=== PATIENT | female | born 1985 | race African-American/Black ===

== ENCOUNTER 2018-06-13 08:26 | Day surgery (SDC) | payer BC, OTHER ==
[2018-06-09 11:08] VITALS: BMI 27.1
[~2018-06-13 08:26] MED LIST: LACTATED RINGERS 1,000 ML IV SCH
[2018-06-13 08:53] VITALS: TEMP 98.8
[2018-06-13] MEDS ORDERED: LIDOCAINE 1% INJ 10MG/ML (20 ML MDV) ONE (09:41)
[2018-06-13] MEDS ORDERED: fentaNYL (PF) 50 MCG/ML 2 ML AMP ONE (09:41)
[2018-06-13] MEDS ORDERED: PROPOFOL 10 MG/ML 20 ML VIAL IV ONE (09:41)
--- NOTE | 2018-06-13 09:47 | P.GSHP ---
History of Present Illness H&P Date: 06/13/18 Chief Complaint: GERD This is a 32-year-old female who presents today for EGD. Patient issues with GERD. Past Medical History Past Medical History: No Reported History Additional Past Medical History / Comment(s): stomach discomfort and burning History of Any Multi-Drug Resistant Organisms: None Reported Past Surgical History: Hernia Repair Additional Past Surgical History / Comment(s): 2 front tooth extracted 06/07/18 Past Anesthesia/Blood Transfusion Reactions: No Reported Reaction Smoking Status: Current every day smoker - Past Family History Mother Family Medical History: Unable to Obtain Additional Family Medical History / Comment(s): pt adopted family hhx unknown Medications and Allergies Home Medications Medication Instructions Recorded Confirmed Type Ibuprofen [Motrin] 800 mg PO TID 11/25/15 06/13/18 History Acetaminophen-Codeine 300-30mg 1 tab PO Q4H PRN 06/09/18 06/13/18 History [Tylenol w/codeine #3] Sucralfate [Carafate] 1 gm PO TID 06/09/18 06/13/18 History busPIRone HCL 10 mg PO Q8H 06/09/18 06/13/18 History Allergies Allergy/AdvReac Type Severity Reaction Status Date / Time No Known Allergies Allergy Verified 06/13/18 09:03 Surgical - Exam Vital Signs Temp Pulse Resp BP Pulse Ox 98.8 F 70 16 132/80 99 06/13/18 08:51 06/13/18 08:51 06/13/18 08:51 06/13/18 08:51 06/13/18 08:51 - General well developed, no distress - Eyes PERRL - ENT normal pinna - Neck no masses, no bruits - Respiratory normal expansion - Cardiovascular Rhythm: regular - Abdomen Abdomen: soft, non tender Assessment and Plan Assessment: GERD. We'll perform EGD.
--- NOTE | 2018-06-13 09:58 | P.OP ---
Date of Procedure: 06/13/18 Preoperative Diagnosis: GERD Postoperative Diagnosis: Mild duodenitis Moderate antral gastritis No evidence of hiatal hernia No evidence of esophagitis Procedure(s) Performed: EGD Anesthesia: MAC Surgeon: Guilherme Reid Pathology: other (Antrum, esophagus) Condition: stable Disposition: PACU Description of Procedure: The patient's placed on the endoscopy table in the lateral position. She received IV sedation. The gastroscope placed oropharynx and passed in the esophagus into the stomach. Scope was then placed through the pylorus. The first second portion of duodenum appeared mildly inflamed. A biopsies performed. Scope was then brought back and the antrum. This was moderately inflamed. There is evidence of some gastritis. This area is biopsied. Scope was then retroflexed the remainder of the stomach appeared normal. The GE junction was at 40 cm. There is no significant hiatal hernia.. The distal esophagus appeared normal. The proximal esophagus appeared normal. Was withdrawn for patient.
[2018-06-13 10:24] VITALS: BP 122/82; PULSE 56; RESP 18
== END 2018-06-13 10:38 | disposition home or self-care (01) ==
LOC: ORWHC2ENDO 08:26
PROVIDERS: ATTEND Surgery
DX: K29.50 Unspecified chronic gastritis without bleeding (principal); K29.80 Duodenitis without bleeding; F17.200 Nicotine dependence, unspecified, uncomplicated; Z79.1 Long term (current) use of non-steroidal anti-inflammatories (NSAID); Z79.899 Other long term (current) drug therapy
CPT/HCPCS: 43239; 81025; 88305

== ENCOUNTER 2019-08-22 04:44 | Outpatient (CLI) | payer OTHER ==
[2019-08-22 05:13] VITALS: BP 131/82; PULSE 88; RESP 18; TEMP 97.9
--- NOTE | 2019-09-19 07:24 | P.MSEPDOC ---
Presenting Problems - Arrival Data Date of Arrival on Unit: 08/22/19 Time of Arrival on Unit: 04:44 Mode of Transport: Ambulatory - Complaint OB-Reason for Admission/Chief Complaint: Syncope/Fainting Spell Comment: Near syncopal episode at work, did not fall, just felt like she was going to pass out and caught by coworkers, taken to [facility] Medical History - Information : 1 Para: 0 Term: 0 : 0 Abortions: Spontaneous or Elective: 0 Number of Living Children: 0 - Gestational Age Gestational Age by LOREN (wks/days): 31 Weeks and 3 Days - History Complications: Smoker Review of Systems - Review of Systems Constitutional: No problems Breast: No problems ENT: No problems Cardiovascular: No problems Respiratory: No problems Gastrointestinal: No problems Genitourinary: No problems Musculoskeletal: No problems Neurological: No problems Skin: No problems Vital Signs - Temperature Temperature: 97.9 F Temperature Source: Temporal Artery Scan - Pulse Right Supine Brachial Pulse Rate: 88 Pulse Assessment Method: Automatic Cuff - Respirations Respiratory Rate: 18 Oxygen Delivery Method: Room Air O2 Sat by Pulse Oximetry: 99 - Blood Pressure Right Arm Supine Blood Pressure: 131/82 Blood Pressure Mean: 98 Blood Pressure Source: Automatic Cuff Medical Screen Scoring (Pre) - Cervical Exam Dilation: Exam Deferred Effacement: Exam Deferred Membranes: Intact - Uterine Contractions Frequency: N/A Duration: N/A Intensity: N/A - Maternal Vital Signs Maternal Temperature: N/A Maternal Blood Pressure: N/A Signs of Preeclampsia: N/A - Maternal Trauma Maternal Trauma: N/A - Assessment - Baby A Baseline FHR: 135 Heart Rate - NICHD Category: Category I (Normal) = 0 NST: Reactive - Total Score - Baby A Total Score - Baby A: 0 - Total Score - Baby B Total Score - Baby B: 0 - Total Score - Baby C Total Score - Baby C: 0 - Level of Risk - Baby A Level of Risk - Baby A: Low (0-5) - Level of Risk - Baby B Level of Risk - Baby B: Low (0-5) - Level of Risk - Baby C Level of Risk - Baby C: Low (0-5) Physician Notification (Pre) - Physician Notified Physician Notified Date: 08/22/19 Physician Notified Time: 04:50 New Order Received: Yes - Notification Comment Comment: obtain Reactive NST and assess pt to see if she feels better, if reactive NST and feeling better she may be discharged to home Disposition - Disposition OB Disposition: Triage, Discharge to home Discharge Date: 08/22/19 Discharge Time: 05:30 I agree with the RN Medical Screening Exam: Yes Risk & Benefit of care provided described in d/c instruction: Yes Diagnosis: SYNCOPE AND COLLAPSE
== END 2019-08-22 05:30 | disposition home or self-care (01) ==
LOC: FBPOP 04:44
PROVIDERS: ATTEND Obstetrics & Gynecology
DX: O99.89 Other specified diseases and conditions complicating pregnancy, childbirth and the puerperium (principal); R55 Syncope and collapse; Z3A.31 31 weeks gestation of pregnancy
CPT/HCPCS: 59025; G0463; 99213

== ENCOUNTER 2019-10-12 14:16 | Inpatient (IN) | payer OTHER ==
[2019-10-12 14:53] LABS: Appearance,Urine Cloudy (Clear); Bacteria,Urine Rare /hpf; Bilirubin,Urine Negative (Negative); Blood,Urine Negative (Negative); Color,Urine Yellow; Glucose,Urine (UA) Negative (Negative); Ketones,Urine Negative (Negative); Leukocyte Esterase,Urine Trace (Negative); Mucus,Urine Rare /hpf; Nitrite,Urine Negative (Negative); Protein,Urine Negative (Negative); RBC,Urine 1 /hpf (0-5); Specific Gravity,Urine 1.015 (1.001-1.035); Squamous Epithelial Cell,Urine 5 /hpf (0-4); Urobilinogen,Urine <2.0 mg/dL (<2.0); WBC,Urine 1 /hpf (0-5)
[2019-10-12 14:57] LABS: Protein/Creatinine Ratio,Urine 0.095
[2019-10-12 15:43] LABS: ALT 10 U/L (4-34); AST 19 U/L (14-36); African American GFR (CKD) >90 (>60 ml/min/1.73 sqM); Basophils % (A) 0 %; Blood Urea Nitrogen 9 mg/dL (7-17); Eosinophils # (A) 0.1 k/uL (0-0.7); Eosinophils % (A) 1 %; HCT 36.5 % (34.0-46.0); HGB 11.4 gm/dL (11.4-16.0); LDH 368 U/L (313-618); Lymphocytes # (A) 1.6 k/uL (1.0-4.8); Lymphocytes % (A) 18 %; MCH 26.4 pg (25.0-35.0); MCHC 31.1 g/dL (31.0-37.0); MCV 84.9 fL (80.0-100.0); Mean Platelet Volume 9.5; Monocytes # (A) 0.5 k/uL (0-1.0); Monocytes % (A) 6 %; Neutrophils # (A) 6.4 k/uL (1.3-7.7); Neutrophils % (A) 73 %; Non-African American GFR(CKD) >90 (>60 ml/min/1.73 sqM); Platelet Count 248 k/uL (150-450); RDW 15.3 % (11.5-15.5); Uric Acid 4.8 mg/dL (3.7-7.4); WBC 8.8 k/uL (3.8-10.6)
[2019-10-12] MEDS ORDERED: BUTORPHANOL 1 MG/ML 1 ML VIAL IV PRN (15:54)
[2019-10-12] MEDS ORDERED: DINOPROSTONE 10 MG INSERT.ER VAGINAL ONE (15:54)
[2019-10-12] MEDS ORDERED: ZOLPIDEM 5 MG TAB PO PRN (15:54)
--- NOTE | 2019-10-12 16:34 | P.HPOB ---
History of Present Illness H&P Date: 10/12/19 Chief Complaint: IUP at 39 and 5/7 weeks, gestational HTN This is a 33yo that was seen in the office today for routine visit and blood pressure was noted to be elevated 144/922. Patient was sent to the hospital for continued elevated blood pressures 140s to 150s over 80s to 90s were noted. She has no prior history of elevated blood pressures with this preg sharon. Patient denies headache right upper quadrant pain or changes in her vision. Patient states she feels well and notes good movement. Patient has been receiving routine uncomplicated care until this point. On lab work blood type is noted to be A+, rubella status immune, RPR nonreactive, hepatitis B surface antigen negative, HIV negative, group beta strep status is negative 09/24/2019. She did fail her 1 hour gestational diabetes screen but subsequently passed her 3 hour. Review of Systems Constitutional: Reports fatigue Ears, nose, mouth and throat: Denies headache Cardiovascular: Reports leg edema Respiratory: Denies dyspnea Gastrointestinal: Denies constipation, Denies diarrhea, Denies nausea, Denies vomiting Genitourinary: Reports Past Medical History Past Medical History: No Reported History Additional Past Medical History / Comment(s): stomach discomfort and burning History of Any Multi-Drug Resistant Organisms: None Reported Past Surgical History: Hernia Repair Additional Past Surgical History / Comment(s): 2 front tooth extracted 06/07/18 Past Anesthesia/Blood Transfusion Reactions: No Reported Reaction Past Psychological History: Depression Smoking Status: Current some day smoker Past Alcohol Use History: None Reported Additional Past Alcohol Use History / Comment(s): smoker for 5 years 10-15 cig/day Past Drug Use History: None Reported - Past Family History Mother Family Medical History: Unable to Obtain Additional Family Medical History / Comment(s): pt adopted family hhx unknown Medications and Allergies Home Medications Medication Instructions Recorded Confirmed Type Pnv,Calcium 72/Iron/Folic Acid 1 each PO DAILY 08/22/19 10/12/19 History [ Plus Tablet] Allergies Allergy/AdvReac Type Severity Reaction Status Date / Time codeine AdvReac Nausea & Verified 10/12/19 14:29 Vomiting Exam Osteopathic Statement: *. No significant issues noted on an osteopathic structural exam other than those noted in the History and Physical/Consult. Vital Signs Temp Pulse Resp BP Pulse Ox 10/12/19 16:00 98.4 F 73 20 164/97 10/12/19 14:42 72 18 161/101 10/12/19 14:29 98.4 F 73 20 164/97 100 Intake and Output 10/12/19 10/12/19 10/12/19 06:59 14:59 22:59 Other: Weight 86.183 kg 86.183 kg Targeted physical exam is performed on this date in general this a well- nourished well-developed -Tongan female in no acute distress, breathing is noted to nonlabored heart has regular rate and rhythm abdomen is gravid and appropriate for gestational age, heart tones are noted to be category 1 she is lizzie irregularly. On cervical exam she is fingertip/50/-3. Vertex presentation is noted. Cervidil is placed without difficulty at this time. Results Result Diagrams: 10/12/19 14:53 10/12/19 14:53 Abnormal Lab Results - Last 24 Hours (Table) 10/12/19 Range/Units 14:43 Urine Appearance Cloudy H (Clear) Ur Leukocyte Esterase Trace H (Negative) Ur Squamous Epith Cells 5 H (0-4) /hpf Urine Bacteria Rare H (None) /hpf Urine Mucus Rare H (None) /hpf Assessment and Plan (1) Term Current Visit: Yes Status: Acute Code(s): Z34.90 - ENCNTR FOR SUPRVSN OF NORMAL , UNSP, UNSP TRIMESTER SNOMED Code(s): 79248804 (2) Gestational HTN Current Visit: Yes Status: Acute Code(s): O13.9 - GESTATIONAL HTN W/O SIGNIFICANT PROTEINURIA, UNSP TRIMESTER SNOMED Code(s): 318653278 Plan: Patient is admitted to labor and delivery for Cervidil induction of labor secondary to gestational hypertension. Pre-Shola labs are ordered and will be evaluated. Plan of care discussed with the patient and all questions are answered. We will plan hydralazine for blood pressures greater than 160/110, Stadol is ordered she should become uncomfortable with labor contractions.
[2019-10-12] MEDS ORDERED: hydrALAZINE HCL 20 MG/ML 1 ML VIAL IM STA (16:47)
[2019-10-13] MEDS ORDERED: TERBUTALINE 1 MG/ML VIAL SQ PRN (04:30)
[2019-10-13] MEDS ORDERED: OXYTOCIN 10 UNIT/ML 1 ML VIAL IM PRN (04:30)
[2019-10-13] MEDS ORDERED: METHYLERGONOVINE 0.2 MG/ML 1 ML AMP IM PRN (04:30)
[2019-10-13] MEDS ORDERED: LIDOCAINE 0.5% (PF) 5 MG/ML (50 ML SDV) SQ PRN (04:30)
[2019-10-13] MEDS ORDERED: CARBOPROST TROMETHAMINE 250 MCG/ML 1 ML AMP IM PRN (04:30)
[2019-10-13] MEDS: LACTATED RINGERS 1,000 ML IV SCH ×3 (05:04→22:18)
[2019-10-13] MEDS: OXYTOCIN 30 UNITS/500 ML NS 30 UNIT in SALINE 1 500ML.BAG IV SCH (05:04)
[2019-10-13] MEDS: PRENATAL VIT-IRON-FOLIC ACID 1 EACH CAP PO SCH (10:14)
[2019-10-13] MEDS ORDERED: fentaNYL (PF) 50 MCG/ML 5 ML AMP ONE (12:16)
[2019-10-13] MEDS ORDERED: ROPIVACAINE 5MG/ML 20ML VIAL ONE (12:16)
[2019-10-13] MEDS ORDERED: SODIUM CHLORIDE 0.9% 100 ML BAG ONE (12:16)
[2019-10-13 14:18] LABS: Basophils % (A) 0 %; Eosinophils # (A) 0.1 k/uL (0-0.7); Eosinophils % (A) 1 %; HCT 34.3 % (34.0-46.0); HGB 11.2 gm/dL (11.4-16.0); Lymphocytes # (A) 0.9 k/uL (1.0-4.8); Lymphocytes % (A) 7 %; MCH 27.6 pg (25.0-35.0); MCHC 32.6 g/dL (31.0-37.0); MCV 84.9 fL (80.0-100.0); Mean Platelet Volume 8.9; Monocytes # (A) 0.8 k/uL (0-1.0); Monocytes % (A) 5 %; Neutrophils % (A) 85 %; Platelet Count 257 k/uL (150-450); RBC 4.04 m/uL (3.80-5.40); RDW 15.5 % (11.5-15.5); WBC 14.1 k/uL (3.8-10.6)
[2019-10-13] MEDS ORDERED: hydrALAZINE HCL 20 MG/ML 1 ML VIAL IM STA (15:04)
[2019-10-13] MEDS ORDERED: hydrALAZINE HCL 20 MG/ML 1 ML VIAL IVP PRN ×2 (19:18)
[2019-10-13] MEDS ORDERED: MAGNESIUM SULFATE-WATER PMX 4 GM in WATER FOR INJECTION 1 100ML.BAG IVPB ONE (19:18)
[2019-10-13] MEDS ORDERED: LABETALOL 5 MG/ML VIAL MDV IVP PRN ×2 (19:18)
[2019-10-13] MEDS ORDERED: CALCIUM GLUCONATE 1 GM/10 ML VIAL IV PRN (19:18)
[2019-10-13] MEDS ORDERED: HYDROCORTISONE 2.5% RECTAL CREAM 30 GM TUBE RECTAL PRN (19:22)
[2019-10-13] MEDS ORDERED: IBUPROFEN 600 MG TAB PO PRN (19:22)
[2019-10-13] MEDS ORDERED: HYDROcodone/APAP 5-325MG 1 EACH TAB PO PRN (19:22)
[2019-10-13] MEDS ORDERED: WITCH HAZEL 1 EACH MED..PAD TOPICAL PRN (19:22)
[2019-10-13] MEDS ORDERED: SIMETHICONE 80 MG CHEWABLE PO PRN (19:22)
[2019-10-13] MEDS ORDERED: BENZOCAINE/MENTHOL SPRAY 1 GM/SPRAY AEROSOL TOPICAL PRN (19:22)
[2019-10-13] MEDS ORDERED: ZOLPIDEM 5 MG TAB PO PRN (19:22)
[2019-10-13] MEDS ORDERED: diphenhydrAMINE 50 MG/ML 1 ML VIAL IVP PRN ×2 (19:22)
[2019-10-13] MEDS ORDERED: LANOLIN CREAM 5 GM TUBE TOPICAL PRN (19:22)
[2019-10-13] MEDS ORDERED: diphenhydrAMINE 25 MG CAP PO PRN (19:22)
[2019-10-13] MEDS ORDERED: diphenhydrAMINE 50 MG CAP PO PRN (19:22)
[2019-10-13] MEDS ORDERED: ACETAMINOPHEN TAB 325 MG TAB PO PRN (19:22)
[2019-10-13] MEDS: LABETALOL 200 MG TAB PO SCH (19:24)
--- NOTE | 2019-10-13 19:26 | P.PROBDLV ---
Vaginal Delivery Note - . Vaginal Delivery Note: This pleasant 33-year-old 1 para 0 was sent to the office at 38-5/7 weeks for induction of labor secondary to gestational hypertension. Patient was noted to be fingertip/50/-3 Cervidil was placed in the morning she was noted to be 1/60/-2 Pitocin had been begun per hospital protocol. Amniotomy was performed once regular contractions were noted clear fluid was obtained. Patient became uncomfortable was noted to be 2-3 cm therefore epidural was offered and anesthesia placed this without difficulty. Patient was noted to have increasing blood pressures when she reached 4-5 cm 170 over 100s therefore 1 dose of 10 mg of hydralazine were given IV, her blood pressure did respond and eventually came down to her baseline of 150s over 90s. Patient progressed to complete began pushing and had a normal spontaneous vaginal delivery of a viable male infant at 1843, weight of 6 lbs. 12 oz. with Apgars of 9 and 9 at one and 5 minutes respect daily. After a two-minute delayed the umbilical cord was doubly clamped and cut and the placenta was delivered spontaneously intact with a three-vessel cord being noted. A second-degree midline laceration was noted therefore a 3-0 Rapide was used to repair this laceration in the usual fashion. In addition a right labial laceration was repaired with 4-0 chromic. Hemostasis was appreciated 2 from both laceration site. Uterus was noted to be firm and below the umbilicus, estimated blood loss 200 mL. Patient and infant tolerated delivery well and are resting comfortably.
[2019-10-13] MEDS ORDERED: OXYTOCIN 20 UNITS/1000 ML NS 1,000 ML IV SCH (19:30)
[2019-10-13] MEDS: MAGNESIUM SULFATE-WATER PMX 20 GM in WATER FOR INJECTION 1 500ML.BAG IV SCH (19:57)
[2019-10-13] MEDS: SENNOSIDES-DOCUSATE SODIUM 1 EACH TAB PO SCH (20:11)
[2019-10-14] MEDS: OXYTOCIN 30 UNITS/500 ML NS 30 UNIT in SALINE 1 500ML.BAG IV SCH (04:46)
[2019-10-14 05:38] LABS: Basophils % (A) 0 %; Eosinophils % (A) 0 %; HGB 10.1 gm/dL (11.4-16.0); Lymphocytes # (A) 1.6 k/uL (1.0-4.8); Lymphocytes % (A) 7 %; MCH 27.3 pg (25.0-35.0); MCHC 32.5 g/dL (31.0-37.0); MCV 84.1 fL (80.0-100.0); Mean Platelet Volume 9.3; Monocytes # (A) 1.6 k/uL (0-1.0); Monocytes % (A) 6 %; Neutrophils # (A) 21.4 k/uL (1.3-7.7); Neutrophils % (A) 85 %; Platelet Count 244 k/uL (150-450); RBC 3.69 m/uL (3.80-5.40); RDW 15.9 % (11.5-15.5); WBC 25.1 k/uL (3.8-10.6)
[2019-10-14 05:47] LABS: ALT 11 U/L (4-34); AST 27 U/L (14-36); African American GFR (CKD) >90 (>60 ml/min/1.73 sqM); Blood Urea Nitrogen 9 mg/dL (7-17); LDH 551 U/L (313-618); Non-African American GFR(CKD) >90 (>60 ml/min/1.73 sqM); Uric Acid 6.2 mg/dL (3.7-7.4)
[2019-10-14] MEDS: MAGNESIUM SULFATE-WATER PMX 20 GM in WATER FOR INJECTION 1 500ML.BAG IV SCH (06:09)
[2019-10-14] MEDS: LACTATED RINGERS 1,000 ML IV SCH ×2 (06:09→20:31)
[2019-10-14] MEDS: SENNOSIDES-DOCUSATE SODIUM 1 EACH TAB PO SCH ×2 (08:57→20:31)
[2019-10-14] MEDS: PRENATAL VIT-IRON-FOLIC ACID 1 EACH CAP PO SCH (09:17)
[2019-10-14] MEDS: LABETALOL 200 MG TAB PO SCH ×2 (09:17→20:31)
--- NOTE | 2019-10-14 11:47 | P.PNOBGVD ---
Subjective - Subjective Interval history: The patient denies any secondary symptoms of preeclampsia to include headache, scotomata, or significant edema. She reports tolerating magnesium well at this time. Patient reports: Reports appetite normal, Reports voiding normally, Reports pain well controlled, Reports ambulating normally, Reports other [place]: doing well Objective - Latest Vital Signs Latest vital signs: Vital Signs Temp Pulse Resp BP Pulse Ox 10/14/19 11:00 97.9 F 93 16 130/70 10/14/19 10:15 98.3 F 96 16 133/79 10/14/19 09:00 98.1 F 95 16 129/88 100 10/14/19 08:10 97.9 F 90 17 135/75 99 10/14/19 07:00 97.7 F 87 18 119/69 99 10/14/19 06:00 98.0 F 88 18 131/68 98 10/14/19 05:00 96 18 115/62 10/14/19 04:00 98.4 F 111 H 18 115/61 99 10/14/19 03:00 94 16 104/56 10/14/19 02:00 98.1 F 100 16 118/62 99 10/14/19 01:00 101 H 16 107/53 10/14/19 00:00 99.8 F H 110 H 18 121/65 98 10/13/19 23:00 99.4 F 104 H 18 127/83 98 10/13/19 22:00 98.9 F 107 H 18 139/75 98 10/13/19 21:10 100.3 F H 122 H 18 143/70 100 10/13/19 20:40 117 H 18 163/90 100 10/13/19 20:25 117 H 18 151/80 100 10/13/19 20:10 101.7 F H 112 H 18 164/82 100 10/13/19 19:55 102.6 F H 129 H 18 155/80 99 10/13/19 19:40 135 H 20 169/92 99 10/13/19 19:25 100.2 F H 122 H 18 180/111 100 10/13/19 19:10 101.9 F H 130 H 18 177/96 100 10/13/19 12:00 98.4 F 102 H 16 146/78 Intake and Output 10/13/19 10/14/19 10/14/19 22:59 06:59 14:59 Intake Total 1725 2450 1375 Output Total 1100 2650 2100 Balance 625 200 -725 Intake: IV 1125 1050 625 Lactated Ringers 1,000 ml 525 375 @ 75 mls/hr IV .[id number] [facility] Rx#:[id number] Magnesium Sulfate-Water 100 400 250 Pmx 20 gm In Water For Injection 1 500ml.bag @ 2 GM/HR 50 mls/hr IV .Q10H DAVID Rx#:[id number] Magnesium Sulfate-Water 100 Pmx 4 gm In Water For Injection 1 100ml.bag @ 300 mls/hr IVPB ONCE ONE Rx#:[id number] Oxytocin 20 Units/1000 ml 875 125 Ns 1,000 ml @ Per Protocol IV .Q0M [facility] Rx#: [id number] ceFAZolin 2 gm In Sodium 50 Chloride 0.9% 50 ml @ 100 mls/hr IVPB Q8H [facility] Rx#: [id number] Intake, IV Titration 500 Amount Magnesium Sulfate-Water 500 Pmx 20 gm In Water For Injection 1 500ml.bag @ 2 GM/HR 50 mls/hr IV .Q10H [facility] Rx#:[id number] Oral 600 900 750 Output: Urine 1100 2650 2100 Other: Voiding Method Indwelling Catheter Weight 83.733 kg - Exam Extremities: Present: normal Abdomen: Present: normal appearance, soft Uterus: Present: normal, firm (The uterine fundus is tonic and nontender at or below the umbilicus.) - Labs Labs: Abnormal Lab Results - Last 24 Hours (Table) 10/13/19 10/14/19 Range/Units 14:00 05:30 WBC 14.1 H 25.1 H (3.8-10.6) k/uL RBC 3.69 L (3.80-5.40) m/uL Hgb 11.2 L 10.1 L (11.4-16.0) gm/dL Hct 31.0 L (34.0-46.0) % RDW 15.9 H (11.5-15.5) % Neutrophils # 12.0 H 21.4 H (1.3-7.7) k/uL Lymphocytes # 0.9 L (1.0-4.8) k/uL Monocytes # 1.6 H (0-1.0) k/uL Assessment and Plan (1) Pre-eclampsia superimposed on chronic hypertension Current Visit: Yes Status: Acute Code(s): O11.9 - PRE-EXISTING HYPERTENSION WITH PRE-ECLAMPSIA, UNSP TRIMESTER SNOMED Code(s): 07327895 (2) Normal spontaneous vaginal delivery Current Visit: Yes Status: Acute Code(s): O80 - ENCOUNTER FOR FULL-TERM UNCOMPLICATED DELIVERY SNOMED Code(s): 87261808 Plan: Blood pressures are stable on 200 mg of labetalol twice daily. She will continue with magnesium sulfate for 24 hours and, pending no complications, likely be discharged home tomorrow. The is otherwise doing well and will be circumcised today. Otherwise, continue routine care aside from preeclampsia precautions.
[2019-10-15 00:07] VITALS: RESP 17
[2019-10-15] MEDS: MAGNESIUM SULFATE-WATER PMX 20 GM in WATER FOR INJECTION 1 500ML.BAG IV SCH (00:22)
[2019-10-15 08:20] VITALS: BP 118/55; PULSE 102; TEMP 98.5
[2019-10-15] MEDS: SENNOSIDES-DOCUSATE SODIUM 1 EACH TAB PO SCH (08:22)
[2019-10-15] MEDS: PRENATAL VIT-IRON-FOLIC ACID 1 EACH CAP PO SCH (09:14)
[2019-10-15] MEDS: LABETALOL 200 MG TAB PO SCH (09:14)
--- NOTE | 2019-10-15 11:06 | P.DS ---
Providers Date of admission: 10/12/19 15:32 Expected date of discharge: 10/15/19 Attending physician: Tiffany Rosa Primary care physician: Stated None - Discharge Diagnosis(es) (1) Pre-eclampsia superimposed on chronic hypertension Current Visit: Yes Status: Acute (2) Normal spontaneous vaginal delivery Current Visit: Yes Status: Acute Hospital Course: The patient is a 33-year-old 1 para 0 admitted at 38-5/7 weeks by good dating parameters perches admitted following elevated blood pressures in the office on a routine visit. In the hospital, her blood pressures continued to be elevated and she therefore was admitted for Cervidil cervical ripening to be followed by Pitocin augmentation. There were no other secondary signs of at that time and labs were negative. Overnight she made enough cervical progress to undergo artificial rupture of membranes in the morning after Pitocin augmentation of been started. She made progress and had an epidural catheter placed for analgesia. She did ultimately progressed to complete and pushed to a normal spontaneous vaginal delivery of a viable 6 lbs. 12 oz. baby boy with Apgars of 9 at 1 minute and 9 at 5 minutes. She had some fairly significantly elevated blood pressures at the latter stages of the active phase of labor requiring use of hydralazine. Following delivery, she had magnesium sulfate prophylaxis through her IV for 24 hours and was started on labetalol 200 mg twice daily to control blood pressures. Over the course of the first day , she diuresed and actually had fairly significantly low blood pressures. As result, she was deemed stable for discharge on day #2 to follow-up in the office in 1-2 weeks for a blood pressure check and 6 weeks routinely. Discharge instructions included calling for any significantly increased bleeding or foul-smelling lochia, significantly increased fever abdominal pain, perineal complaints, breast complaints, or anything else that concerned her. She is additionally instructed to have nothing in the vagina for at least 6 weeks time to include intercourse. She understood her instructions and agrees to follow up as noted above. Discharge medications included [id number] analgesic pain medications as well as a prescription for labetalol 100 mg twice daily, #60 dispensed with 5 refills. She is additionally to continue use vitamins as she has opted to try to breast-feed. Maternal blood type is A+ and rubella status is immune. Procedures: #1. Cervidil cervical ripening #2. Artificial rupture of membranes #3. Pitocin induction #4. Epidural analgesia #5. Normal spontaneous vaginal delivery #. Repair of perineal laceration #7. Magnesium sulfate prophylaxis #8. Initiation of antihypertensive therapy. Patient Condition at Discharge: Stable Plan - Discharge Summary New Discharge Prescriptions: No Action Pnv,Calcium 72/Iron/Folic Acid [ Plus Tablet] 1 each PO DAILY Discharge Medication List Pnv,Calcium 72/Iron/Folic Acid [ Plus Tablet] 1 each PO DAILY 08/22/19 [History] Follow up Appointment(s)/Referral(s): Tiffany Rosa DO [Doctor of Osteopathic Medicine] - 1 Week Discharge Disposition: HOME SELF-CARE
[2019-10-15] MEDS ORDERED: MEASLES-MUMPS-RUBELLA VACC/PF 12,500 UNIT/0.5 ML VIAL SQ ONE (14:17)
== END 2019-10-15 15:35 | disposition home or self-care (01) | DRG 807 ==
LOC: FBPOP 14:16 → 4FBP 15:32
PROVIDERS: ADMIT Obstetrics & Gynecology Obstetrics; ATTEND Obstetrics & Gynecology Obstetrics
PROC: 3E0P7VZ Introduction of Hormone into Female Reproductive, Via Natural or Artificial Opening (ICD-10-PCS; 2019-10-12)
PROC: 3E033VJ Introduction of Other Hormone into Peripheral Vein, Percutaneous Approach (ICD-10-PCS; 2019-10-12)
PROC: 10907ZC Drainage of Amniotic Fluid, Therapeutic from Products of Conception, Via Natural or Artificial Opening (ICD-10-PCS; 2019-10-12)
PROC: 10E0XZZ Delivery of Products of Conception, External Approach (ICD-10-PCS; principal; 2019-10-13)
PROC: 0UQMXZZ Repair Vulva, External Approach (ICD-10-PCS; principal; 2019-10-13)
PROC: 0KQM0ZZ Repair Perineum Muscle, Open Approach (ICD-10-PCS; principal; 2019-10-13)
DX: O11.4 Pre-existing hypertension with pre-eclampsia, complicating childbirth (principal); Z37.0 Single live birth; O70.1 Second degree perineal laceration during delivery; O99.344 Other mental disorders complicating childbirth; O99.334 Smoking (tobacco) complicating childbirth; F32.9 Major depressive disorder, single episode, unspecified; F17.210 Nicotine dependence, cigarettes, uncomplicated; Z3A.38 38 weeks gestation of pregnancy; O70.0 First degree perineal laceration during delivery; Z88.5 Allergy status to narcotic agent
CPT/HCPCS: 59025; 81001; 82565; 82570; 83615; 84156; 84450; 84460; 84520; 84550; 85025; 86850; 86900; 86901; 88307; 90707; 99215

== ENCOUNTER 2023-01-19 08:48 | Emergency (ER) | payer OTHER ==
[2023-01-19 08:51] VITALS: TEMP 97.8
[2023-01-19] MEDS ORDERED: ACETAMINOPHEN TAB 500 MG TAB PO STA (10:34)
--- NOTE | 2023-01-19 10:39 | ED ---
Back Pain HPI - General Chief Complaint: Back Pain/Injury Stated Complaint: Right hip pain Time Seen by Provider: 01/19/23 09:38 Source: patient Limitations: no limitations - History of Present Illness Initial Comments: 37-year-old woman presenting to the ED with a chief complaint of back pain. She states that pain has been ongoing for the past month. Denies any known injury/ trauma. This pain is worsened with movement. 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 States that this typically exacerbates the pain. Denies urinary symptoms. Denies saddle anesthesia. Denies incontinence. - Related Data Home Medications Medication Instructions Recorded Confirmed No Known Home Medications 01/19/23 01/19/23 Allergies Allergy/AdvReac Type Severity Reaction Status Date / Time codeine AdvReac Nausea & Verified 01/19/23 11:14 Vomiting Review of Systems ROS Statement: Those systems with pertinent positive or pertinent negative responses have been documented in the HPI. ROS Other: All systems not noted in ROS Statement are negative. Past Medical History Past Medical History: No Reported History Additional Past Medical History / Comment(s): stomach discomfort and burning History of Any Multi-Drug Resistant Organisms: None Reported Past Surgical History: Hernia Repair Additional Past Surgical History / Comment(s): 2 front tooth extracted 06/07/18 Past Anesthesia/Blood Transfusion Reactions: No Reported Reaction Past Psychological History: Depression Smoking Status: Current every day smoker Past Alcohol Use History: None Reported Past Drug Use History: Marijuana - Past Family History Mother Family Medical History: Unable to Obtain Additional Family Medical History / Comment(s): pt adopted family hhx unknown General Exam Limitations: no limitations General appearance: alert Head exam: Present: atraumatic, normocephalic Eye exam: Present: normal appearance Neck exam: Present: normal inspection Respiratory exam: Present: normal lung sounds bilaterally Cardiovascular Exam: Present: regular rate, normal rhythm Extremities exam: Present: other (Strength and sensation 5/5 in bilateral lower extremities. No midline spinal tenderness to palpation. Reproducible tenderness to palpation of the right lumbar paraspinal region/right hip. ) Neurological exam: Present: alert, oriented X3 Psychiatric exam: Present: normal affect, normal mood Skin exam: Present: warm, dry Course Vital Signs 01/19/23 08:50 Temperature 97.8 F Pulse Rate 75 Respiratory 20 Rate Blood Pressure 132/69 O2 Sat by Pulse 99 Oximetry Medical Decision Making - Medical Decision Making Was pt. sent in by a medical professional or institution ([facility] [place], [facility], urgent care, hospital, or snf...) When possible be specific @ -No Did you speak to anyone other than the patient for history (EMS, parent, family, police, friend...)? What history was obtained from this source @ -No Did you review nursing and triage notes (agree or disagree)? Why? @ -I reviewed and agree with nursing and triage notes Were old charts reviewed (outside hosp., previous admission, EMS record, old EKG, old radiological studies, urgent care reports/EKG's, snf records)? Report findings @ -Charts reviewed showing no history of similar in the past. Differential Diagnosis (chest pain, altered mental status, abdominal pain women, abdominal pain men, vaginal bleeding, weakness, fever, dyspnea, syncope, headache, dizziness, GI bleed, back pain, seizure, CVA, palpatations, mental health, musculoskeletal)? @ -Differential Back Pain: Strain, zoster, cauda equina syndrome, epidural abscess, vertebral osteomyelitis, discitis, fracture, subluxation, disc herniation, DJD, spinal stenosis, dissection, AAA, pancreatitis, peptic ulcer disease, pyelonephritis, kidney stone, this is not meant to be an all-inclusive list. EKG interpreted by me (3pts min.). @ -As above X-rays interpreted by me (1pt min.). @ -X-ray showed no acute findings. CT interpreted by me (1pt min.). @ -None done U/S interpreted by me (1pt. min.). @ -None done What testing was considered but not performed or refused? (CT, X-rays, U/S, labs)? Why? @ -None What meds were considered but not given or refused? Why? @ -None Did you discuss the management of the patient with other professionals (professionals i.e. GUSTAVO Hermosillo, POT FIRER, lab, RT, psych nurse, delinquency prevention social worker, community planner, teacher, career services officer, machine adjuster leader case trim)? Give summary @ -No Was smoking cessation discussed for >3mins.? @ -No Was critical care preformed (if so, how long)? @ -No Were there social determinants of health that impacted care today? How? (Homelessness, low income, unemployed, alcoholism, drug addiction, transportation, low edu. Level, literacy, decrease access to med. care, half-way, re hab)? @ -No Was there de-escalation of care discussed even if they declined (Discuss DNR or withdrawal of care, Hospice)? DNR status @ -No What co-morbidities impacted this encounter? (DM, HTN, Smoking, COPD, CAD, Cancer, CVA, ARF, Chemo, Hep., AIDS, mental health diagnosis, sleep apnea, morbid obesity)? @ -None Was patient admitted / discharged? Hospital course, mention meds given and route, prescriptions, significant lab abnormalities, going to OR and other pertinent info. @ -Discharged. Plain films show no acute findings. Patient provided Toradol 15 mg IM with improvement of pain. Patient discharged to follow up with PCP with prescriptions for ibuprofen and Flexeril Undiagnosed new problem with uncertain prognosis? @ -No Drug Therapy requiring intensive monitoring for toxicity (Heparin, Nitro, Insulin, Cardizem)? @ -No Were any procedures done? @ -None Diagnosis/symptom? @ -Back pain, MSK Acute, or Chronic, or Acute on Chronic? @ -Acute Uncomplicated (without systemic symptoms) or Complicated (systemic symptoms)? @ -Uncomplicated Side effects of treatment? @ -No Exacerbation, Progression, or Severe Exacerbation? @ -No Poses a threat to life or bodily function? How? (Chest pain, [place], [place], pneumonia, PE, COPD, DKA, ARF, appy, cholecystitis, CVA, Diverticulitis, Homicidal, Suicidal, threat to staff... and all critical care pts) @ -No - Lab Data Lab Results 01/19/23 01/19/23 Range/Units 10:53 10:53 Urine Color Yellow Urine Appearance Clear (Clear) Urine pH 6.0 (5.0-8.0) Ur Specific [place] 1.014 (1.001-1.035) Urine Protein Negative (Negative) Urine Glucose (UA) Negative (Negative) Urine Ketones Negative (Negative) Urine Blood Negative (Negative) Urine Nitrite Negative (Negative) Urine Bilirubin Negative (Negative) Urine Urobilinogen <2.0 (<2.0) mg/dL Ur Leukocyte Esterase Negative (Negative) Urine HCG, Qual Not Detected (Not Detectd) Disposition Clinical Impression: Back pain Disposition: HOME SELF-CARE Additional Instructions: Please return to the Emergency Department if symptoms worsen or any other concerns. Follow up with PCP. Is patient prescribed a controlled substance at d/c from ED?: No Referrals: Ave Ybarra DO [Primary Care Provider] - 1-2 days Time of Disposition: 12:19
[2023-01-19 11:12] LABS: Appearance,Urine Clear (Clear); Bilirubin,Urine Negative (Negative); Blood,Urine Negative (Negative); Color,Urine Yellow; Glucose,Urine (UA) Negative (Negative); Ketones,Urine Negative (Negative); Leukocyte Esterase,Urine Negative (Negative); Nitrite,Urine Negative (Negative); Protein,Urine Negative (Negative); Specific Gravity,Urine 1.014 (1.001-1.035); Urobilinogen,Urine <2.0 mg/dL (<2.0)
[2023-01-19] MEDS ORDERED: KETOROLAC 15 MG/ML 1 ML VIAL IM STA (11:28)
--- NOTE | 2023-01-19 12:01 | XR ---
EXAMINATION TYPE: XR lumbosacral spine 5 views DATE OF EXAM: 01/19/2023 Comparison: None Clinical History: 37-year-old female with right-sided back and flank pain back pain Findings: 5 lumbar type vertebral bodies. No pars interarticularis defect is seen. Vertebral body heights and d isc interspaces are preserved. Alignment is maintained. Impression: No vertebral compression collapse or malalignment.
[2023-01-19] MEDS ORDERED: CYCLOBENZAPRINE 10MG STARTER 3 TAB BTL PO STA (12:23)
[2023-01-19] MEDS ORDERED: IBUPROFEN 600 MG STARTER PACK 4 TAB BTL PO STA (12:23)
[2023-01-19 12:37] VITALS: BP 145/89; PULSE 55; RESP 16
== END 2023-01-19 12:36 | disposition home or self-care (01) ==
LOC: EC 08:48
DX: M54.9 Dorsalgia, unspecified (principal); F32.A Depression, unspecified; F17.200 Nicotine dependence, unspecified, uncomplicated; F12.90 Cannabis use, unspecified, uncomplicated; Z88.5 Allergy status to narcotic agent
CPT/HCPCS: 81003; 81025; 72110; 99284; 96372; J1885

== ENCOUNTER 2025-01-01 16:20 | Emergency (ER) | payer OTHER ==
[2025-01-01 16:27] VITALS: RESP 18
--- NOTE | 2025-01-01 17:06 | ED ---
General Adult HPI - General Chief complaint: Abdominal Pain Stated complaint: [facility]-Abd injury Time Seen by Provider: 01/01/25 16:35 Source: patient, RN notes reviewed Mode of arrival: ambulatory Limitations: no limitations - History of Present Illness Initial comments: This is a 39-year-old female presenting to emergency department for complaint of epigastric abdominal pain that has been persistent since last week Wednesday. Patient states that she was picking up a heavy crate of parts at a work, where she works in [place], when she felt pain in her abdomen. States that the pain is worse with movement, deep inhalation, and will stay to use the bathroom. She denies associated nausea, vomiting, diarrhea, constipation, fevers, chills, urinary complaints. Patient had previous hernia repair over 10 years ago. Patient was evaluated at outside emergency room last week with no acute findings. She is requesting a note for work. - Related Data Home Medications Medication Instructions Recorded Confirmed No Known Home Medications 01/19/23 01/19/23 Allergies Allergy/AdvReac Type Severity Reaction Status Date / Time codeine AdvReac Nausea & Verified 01/01/25 16:27 Vomiting Review of Systems ROS Statement: Those systems with pertinent positive or pertinent negative responses have been documented in the HPI. ROS Other: All systems not noted in ROS Statement are negative. Past Medical History Past Medical History: No Reported History Additional Past Medical History / Comment(s): stomach discomfort and burning History of Any Multi-Drug Resistant Organisms: None Reported Past Surgical History: Hernia Repair Additional Past Surgical History / Comment(s): 2 front tooth extracted 06/07/18 Past Anesthesia/Blood Transfusion Reactions: No Reported Reaction Past Psychological History: Depression Smoking Status: Current every day smoker, V[employer] Past Alcohol Use History: None Reported Past Drug Use History: Marijuana - Past Family History Mother Family Medical History: Unable to Obtain Additional Family Medical History / Comment(s): pt adopted family hhx unknown General Exam - General Exam Comments Initial Comments: Visual Physical Exam Vital signs reviewed General: Well-appearing, nontoxic, no acute distress. Head: Normocephalic, atraumatic Eyes: PERRLA, EOMI ENT: Airway patent Chest: Nonlabored breathing Skin: No visual rash, normal skin tone Neuro: Alert and oriented 3 Musculoskeletal: No gross abnormalities Limitations: no limitations General appearance: alert, in no apparent distress Neck exam: Present: normal inspection. Absent: tenderness, meningismus, lymphadenopathy Respiratory exam: Present: normal lung sounds bilaterally. Absent: respiratory distress, wheezes, rales, rhonchi, stridor Cardiovascular Exam: Present: regular rate, normal rhythm, normal heart sounds. Absent: systolic murmur, diastolic murmur, rubs, gallop, clicks GI/Abdominal exam: Present: soft, tenderness (epigastric/mid abdomen), normal bowel sounds. Absent: distended, guarding, rebound, rigid, bruit, hernia Extremities exam: Present: normal inspection, full ROM, normal capillary refill. Absent: tenderness, pedal edema, joint swelling, calf tenderness Back exam: Present: normal inspection. Absent: CVA tenderness (R), CVA tenderness (L) Course Vital Signs 01/01/25 16:25 Temperature 97.9 F Pulse Rate 80 Respiratory 18 Rate Blood Pressure 138/78 O2 Sat by Pulse 98 Oximetry Medical Decision Making - Medical Decision Making Was pt. sent in by a medical professional or institution (, [place], [facility], urgent care, hospital, or [place] [facility] facility...) When possible be specific @ -No Did you speak to anyone other than the patient for history (EMS, parent, family, police, friend...)? What history was obtained from this source @ -No Did you review nursing and triage notes (agree or disagree)? Why? @ -I reviewed and agree with nursing and triage notes Were old charts reviewed (outside hosp., previous admission, EMS record, old EKG, old radiological studies, urgent care reports/EKG's, [place] health [facility] facility records)? Report findings @ -No old charts were reviewed Differential Diagnosis (chest pain, altered mental status, abdominal pain women, abdominal pain men, vaginal bleeding, weakness, fever, dyspnea, syncope, headache, dizziness, GI bleed, back pain, seizure, CVA, palpatations, mental health, musculoskeletal)? @ -Differential Abdominal Pain Women: Appendicitis, Cholecystitis, diverticulosis, ischemic bowel, pancreatitis, hepatitis, UTI, gastroenteritis, AAA, incarcerated hernia, bowel obstruction, constipation, inflammatory bowel, hepatitis, peptic ulcer disease, splenic infarction, perforated viscus, vulvitis, ovarian torsion, PID, kidney stone, placenta abruption, this is not meant to be an all-inclusive list EKG interpreted by me (3pts min.). @ -None X-rays interpreted by me (1pt min.). @ -None done CT interpreted by me (1pt min.). @ -None done U/S interpreted by me (1pt. min.). @ -Ultrasound imaging of the gallbladder no evidence of acute process with suspected ventral wall hernia possibly containing bowel versus fat What testing was considered but not performed or refused? (CT, X-rays, U/S, labs)? Why? @ -Laboratory testing was considered but patient refused What meds were considered but not given or refused? Why? @ -None Did you discuss the management of the patient with other professionals (professionals i.e. DrLorenzo, PA, [facility]OLT THREADER, lab, RT, psych nurse, social services assistant, reverberatory furnace supervisor, teacher, licensed loan officer assistant, returned case inspector)? Give summary @ -No Was smoking cessation discussed for >3mins.? @ -No Was critical care preformed (if so, how long)? @ -No Were there social determinants of health that impacted care today? How? (Homelessness, low income, unemployed, alcoholism, drug addiction, transportation, low edu. Level, literacy, decrease access to med. care, nursing home, rehab)? @ -No Was there de-escalation of care discussed even if they declined (Discuss DNR or withdrawal of care, Hospice)? DNR status @ -No What co-morbidities impacted this encounter? (DM, HTN, Smoking, COPD, CAD, Cancer, CVA, ARF, Chemo, Hep., AIDS, mental health diagnosis, sleep apnea, morbid obesity)? @ -None Was patient admitted / discharged? Hospital course, mention meds given and route, prescriptions, significant lab abnormalities, going to OR and other pertinent info. @ -Discharge. 39-year-old female presents emergency department for abdominal pain after work-related injury. Overall patient is well-appearing and initial workup is started in the emergency department waiting room as there is no immediate availability. Ultrasound imaging is ordered which reveals no acute process. Initial vitals are stable. Almost emanation reveals mild tenderness palpation with no signs of significant hernia, pulsatile abdominal mass, strangulation or incarceration hernia. Patient has refused laboratory testing. She is provided with work note struck to follow-up with primary care provider. Case discussed with Dr. Ybarra Undiagnosed new problem with uncertain prognosis? @ -No Drug Therapy requiring intensive monitoring for toxicity (Heparin, Nitro, Insulin, Cardizem)? @ -No Were any procedures done? @ -No Diagnosis/symptom? @ -abdominal pain Acute, or Chronic, or Acute on Chronic? @ -acute Uncomplicated (without systemic symptoms) or Complicated (systemic symptoms)? @ -uncomplicated Side effects of treatment? @ -No Exacerbation, Progression, or Severe Exacerbation? @ -No Poses a threat to life or bodily function? How? (Chest pain, [place], [place], pneumonia, PE, COPD, DKA, ARF, appy, cholecystitis, CVA, Diverticulitis, Homicidal, Suicidal, threat to staff... and all critical care pts) @ -No Disposition Clinical Impression: Abdominal pain Disposition: HOME SELF-CARE Condition: Stable Instructions (If sedation given, give patient instructions): Abdominal Pain (ED) Additional Instructions: Please return to the Emergency Department if symptoms worsen or any other concerns. Is patient prescribed a controlled substance at d/c from ED?: No Referrals: Ave Ybarra DO [Primary Care Provider] - 1-2 days Time of Disposition: 18:17
--- NOTE | 2025-01-01 17:53 | US ---
EXAMINATION TYPE: US gallbladder DATE OF EXAM: 01/01/2025 COMPARISON: NONE CLINICAL INDICATION: Female, 39 years old with history of epigastric/RUQ ab pain; patient states abd pain after lifting heavy object at work last week. states hx of abdominal hernia with repair TECHNIQUE: Grayscale and color Doppler imaging of the right upper quadrant was performed. FINDINGS: EXAM MEASUREMENTS: Liver Length: 16.0 cm Gallbladder Wall: 0.3 cm CBD: 0.4 cm Right Kidney: 9.7 x 4.4 x 5.2 cm E COMMERCE ARCHITECT NOTES: Pancreas: wnl Liver: wnl Gallbladder: slightly contracted, however appears wnl Evidence for sonographic Julian's sign: no CBD: wnl Right Kidney: wnl there is a 0.8 x 0.5cm hypoechoic area with a 0.7cm neck superior to the umbilicus, ? possible her terence vs other etiology IMPRESSION: 1. No evidence for acute process. 2. Suspected ventral wall hernia possibly containing bowel versus fat. Further workup with CT abdome n hernia protocol. [facility], , 01/01/2025 5:51 PM
[2025-01-01 18:27] VITALS: BP 126/78; PULSE 76; TEMP 98.4
== END 2025-01-01 18:26 | disposition home or self-care (01) ==
LOC: EC 16:20
DX: R10.13 Epigastric pain (principal); F17.290 Nicotine dependence, other tobacco product, uncomplicated
CPT/HCPCS: 76705; 99284